=== PATIENT | male | born 1940 | race Caucasian/White ===

== ENCOUNTER 2018-03-03 16:36 | Inpatient (IN) ==
[2018-03-03] MEDS ORDERED: Morphine Inj 4 MG/ML Vial IV.PUSH ONE (17:00)
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
[2018-03-03] MEDS ORDERED: Morphine Sulfate Inj 2 MG/ML Vial IV.PUSH PRN (17:19)
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
[2018-03-03] MEDS: Sod Chloride 0.9% Inj 1,000 ML IV.CONT SCH ×2 (18:32→23:24)
[2018-03-03] MEDS: Pantoprazole Inj 40 MG Vial IV.PUSH SCH (18:33)
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
[2018-03-03] MEDS ORDERED: Morphine Inj 4 MG/ML Vial IV.PUSH PRN (20:19)
[2018-03-03 21:57] LABS: Hematocrit 31.2 % (39.0-51.0); Hemoglobin 10.1 gm/dL (13.0-17.0); Mean Corpuscular HGB Conc 32.4 % (32.0-36.0); Mean Corpuscular Hemoglobin 29.1 pg (27.0-34.0); Mean Corpuscular Volume 89.8 fL (80.0-100.0); Mean Platelet Volume 6.5 fL (7.0-11.0); Platelet Count 306 th/mm3 (150-450); Red Blood Count 3.48 mil/mm3 (4.50-5.90); White Blood Count 11.7 th/mm3 (4.0-11.0)
[2018-03-03 22:14] LABS: Calcium 7.5 mg/dL (8.5-10.1); Carbon Dioxide 22.8 meq/L (21.0-32.0); Potassium 4.1 meq/L (3.5-5.1)
[2018-03-03] MEDS: Ketorolac Inj 30 MG/ML (IVP) Vial IV.PUSH SCH (23:22)
[2018-03-03] MEDS: Docusate Sodium 100 MG Capsule PO SCH (23:24)
[2018-03-04] MEDS: Morphine Sulfate Inj 2 MG/ML Vial IV.PUSH PRN ×3 (02:23→09:25)
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
[2018-03-04] MEDS ORDERED: Chlorhexidine Gluconate 2% 1 Pack (2 Cloths) TOPICAL PRN (04:00)
[2018-03-04] MEDS: Sod Chloride 0.9% Inj 1,000 ML IV.CONT SCH ×2 (05:36→18:24)
[2018-03-04] MEDS: Ketorolac Inj 30 MG/ML (IVP) Vial IV.PUSH SCH ×4 (05:37→21:24)
[2018-03-04] MEDS: Chlorhexidine Gluconate 2% 1 Pack (2 Cloths) TOPICAL SCH (05:37)
[2018-03-04] MEDS ORDERED: Dextrose 50% in Water 50 ML Vial IV.PUSH PRN (06:27)
[2018-03-04] MEDS ORDERED: Methocarbamol 500 MG Tablet PO SCH (06:30)
[2018-03-04 08:23] LABS: Baso % (Auto) 0.5 % (0.0-2.0); Eos # (Auto) 0.5 th/mm3 (0.0-0.4); Eos % (Auto) 5.1 % (0.0-4.0); Hematocrit 29.6 % (39.0-51.0); Hemoglobin 9.7 gm/dL (13.0-17.0); Lymph # (Auto) 1.6 th/mm3 (1.0-4.8); Lymph % (Auto) 17.2 % (9.0-44.0); Mean Corpuscular HGB Conc 32.7 % (32.0-36.0); Mean Corpuscular Hemoglobin 29.5 pg (27.0-34.0); Mean Corpuscular Volume 90.2 fL (80.0-100.0); Mean Platelet Volume 6.6 fL (7.0-11.0); Mono # (Auto) 0.9 th/mm3 (0.0-0.9); Mono % (Auto) 9.5 % (0.0-8.0); Neut # (Auto) 6.5 th/mm3 (1.8-7.7); Neut % (Auto) 67.7 % (16.0-70.0); Platelet Count 280 th/mm3 (150-450); Red Blood Count 3.29 mil/mm3 (4.50-5.90); Red Cell Distribution Width 14.1 % (11.6-17.2); White Blood Count 9.6 th/mm3 (4.0-11.0)
[2018-03-04 08:33] LABS: Anion Gap 9 meq/L (5-15); Blood Urea Nitrogen 17 mg/dL (7-18); Calcium 7.7 mg/dL (8.5-10.1); Carbon Dioxide 24.3 meq/L (21.0-32.0); Chloride 102 meq/L (98-107); Glomerular Filtration Rate Greater Than 89 mL/min (>89); Glucose,Random 77 mg/dL (74-106); Potassium 4.4 meq/L (3.5-5.1); Sodium 135 meq/L (136-145)
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
[2018-03-04] MEDS: Insulin NovoLIN Regular Correctional Sugar Inj SQ SCH ×4 (09:19→22:46)
[2018-03-04] MEDS: Loratadine 10 MG Tablet PO SCH (09:22)
[2018-03-04] MEDS: Docusate Sodium 100 MG Capsule PO SCH ×2 (09:22→21:24)
[2018-03-04] MEDS: Polyethylene Glycol 3350 17 GM Packet PO SCH (09:23)
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
[2018-03-04] MEDS: Lisinopril 20 MG Tablet PO SCH (12:32)
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
[2018-03-04] MEDS ORDERED: Furosemide 40 MG Tablet PO SCH (16:15)
[2018-03-04] MEDS: Pantoprazole Inj 40 MG Vial IV.PUSH SCH (18:23)
--- NOTE | 2018-03-04 21:18 | US ---
EXAM DATE: 03/04/2018 9:14 PM EDT AGE/SEX: 77 years / Male INDICATIONS: Bilateral leg swelling. CLINICAL DATA: This is the patient's initial encounter. Patient reports that signs and symptoms have been present for 1 day and indicates a pain score of 0/10. MEDICAL/SURGICAL HISTORY: Chronic obstructive pulmonary disease. Gastroesophageal reflux disea se. Hypercholesterolemia. Anxiety. Arthritis. Diabetes. Hypertension. Prostate cancer. Appendectom y. Shoulder surgery. COMPARISON: No prior exams available for comparison. TECHNIQUE: Venous ultrasound of both lower extremities was performed from the inguinal ligament to t he proximal calf. Real-time, color Doppler and spectral tracing, compression and augmentation techni ques were used. FINDINGS: Right Leg: Normal compression of the deep venous system from the inguinal region to the proximal salma f. No echogenic clot is seen. Normal response of the venous system to augmentation and respiration. Left Leg: Normal compression of the deep venous system from the inguinal region to the proximal calf . No echogenic clot is seen. Normal response of the venous system to augmentation and respiration. Other: None. CONCLUSION: No DVT. Electronically signed by: Enoch Gee MD 03/04/2018 9:16 PM EDT
[2018-03-04] MEDS: traZODone 100 MG Tablet PO SCH (21:24)
--- NOTE | 2018-03-04 21:28 | ECG ---
Date Performed: 03/03/2018 Time Performed: 20:45:40 PTAGE: 77 years EKG: Sinus rhythm . Right bundle branch block Abnormal ECG NO PREVIOUS TRACING DOCTOR: Anthony Avalos Interpretating Date/Time 03/04/2018 21:27:23
[2018-03-04 21:37] LABS: Hematocrit 32.4 % (39.0-51.0); Hemoglobin 10.9 gm/dL (13.0-17.0); Mean Corpuscular HGB Conc 33.7 % (32.0-36.0); Mean Corpuscular Hemoglobin 29.6 pg (27.0-34.0); Mean Corpuscular Volume 87.7 fL (80.0-100.0); Mean Platelet Volume 6.9 fL (7.0-11.0); Platelet Count 298 th/mm3 (150-450); Red Blood Count 3.69 mil/mm3 (4.50-5.90); Red Cell Distribution Width 14.2 % (11.6-17.2); White Blood Count 9.8 th/mm3 (4.0-11.0)
[2018-03-04] MEDS ORDERED: Heparin Drip 25,000 UNIT/250 ML BAG IV.CONT PRN (21:40)
[2018-03-04] MEDS ORDERED: Heparin 10,000 UNITS/10 ML Vial (for IV use) IV.PUSH SCH (21:45)
[2018-03-04 21:57] LABS: INR 1.1 Ratio; Prothrombin Time 10.7 sec (9.8-11.6)
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
[2018-03-05] MEDS: Morphine Sulfate Inj 2 MG/ML Vial IV.PUSH PRN ×6 (01:12→22:37)
[2018-03-05] MEDS: Ketorolac Inj 30 MG/ML (IVP) Vial IV.PUSH SCH ×4 (03:05→21:24)
[2018-03-05] MEDS ORDERED: Heparin 10,000 UNITS/10 ML Vial (for IV use) IV.PUSH PRN ×2 (03:40)
[2018-03-05] MEDS: Chlorhexidine Gluconate 2% 1 Pack (2 Cloths) TOPICAL SCH (04:00)
--- NOTE | 2018-03-05 04:08 | XR ---
EXAM DATE: 03/05/2018 3:54 AM EDT AGE/SEX: 77 years / Male INDICATIONS: Shortness of breath CLINICAL DATA: This is the patient's subsequent encounter. Patient reports that signs and symptoms h ave been present for 2 days and indicates a pain score of 8/10. MEDICAL/SURGICAL HISTORY: . Chronic obstructive pulmonary disease. Gastroesophageal reflux dise ase. Hypercholesterolemia. Anxiety. Arthritis. Diabetes. Hypertension. Prostate cancer None. COMPARISON: [facility] [place], CTA PULMONARY W CONTRAST W 3D, 03/04/2018. . FINDINGS: Patchy parenchymal consolidation again seen of both lungs, fairly diffuse on the right and midlung/ba silar predominant on the left. No pleural effusion seen. No pneumothorax. Heart size stable, upper limits of normal. CONCLUSION: No significant change patchy parenchymal opacities of both lungs. Electronically signed by: Enoch Soler MD 03/05/2018 4:06 AM EDT
[2018-03-05] MEDS: Sod Chloride 0.9% Inj 1,000 ML IV.CONT SCH ×2 (05:39→17:30)
[2018-03-05 06:02] LABS: Baso # (Auto) 0.1 th/mm3 (0.0-0.2); Eos # (Auto) 0.6 th/mm3 (0.0-0.4); Eos % (Auto) 7.1 % (0.0-4.0); Hematocrit 31.8 % (39.0-51.0); Hemoglobin 10.3 gm/dL (13.0-17.0); Lymph # (Auto) 1.4 th/mm3 (1.0-4.8); Lymph % (Auto) 17.1 % (9.0-44.0); Mean Corpuscular HGB Conc 32.5 % (32.0-36.0); Mean Corpuscular Hemoglobin 29.5 pg (27.0-34.0); Mean Corpuscular Volume 90.7 fL (80.0-100.0); Mean Platelet Volume 6.7 fL (7.0-11.0); Mono # (Auto) 0.7 th/mm3 (0.0-0.9); Mono % (Auto) 8.7 % (0.0-8.0); Neut # (Auto) 5.6 th/mm3 (1.8-7.7); Neut % (Auto) 66.1 % (16.0-70.0); Platelet Count 266 th/mm3 (150-450); Red Blood Count 3.51 mil/mm3 (4.50-5.90); Red Cell Distribution Width 14.2 % (11.6-17.2); White Blood Count 8.5 th/mm3 (4.0-11.0)
[2018-03-05 06:32] LABS: Calcium 8.6 mg/dL (8.5-10.1); Carbon Dioxide 24.2 meq/L (21.0-32.0)
--- NOTE | 2018-03-05 06:51 | P.PNOP ---
Subjective Interval history: s/p left distal humerus fracture CTA yesterday of lungs reveal bilateral pulmonary emboli patient resting comfortably. no changes in elbow Physical Exam Vital signs: Vital Signs 03/04/18 07:12 03/04/18 08:00 03/04/18 08:18 Temperature 98.3 F Pulse Rate 96 H 99 H Respiratory Rate 24 19 17 Blood Pressure 170/81 H Pulse Oximetry 96 03/04/18 12:00 03/04/18 12:01 03/04/18 15:53 Temperature 98.4 F Pulse Rate 98 H 99 H 110 H Respiratory Rate 25 H 18 17 Blood Pressure 138/90 Pulse Oximetry 94 L 03/04/18 16:00 03/04/18 20:00 03/04/18 20:32 Temperature 98.4 F 97.7 F Pulse Rate 108 H 100 H 103 H Respiratory Rate 19 15 24 Blood Pressure 142/82 H 131/81 Pulse Oximetry 100 98 96 03/04/18 22:00 03/04/18 22:17 03/04/18 23:47 Temperature Pulse Rate 94 H Respiratory Rate 16 22 16 Blood Pressure Pulse Oximetry 03/05/18 00:00 03/05/18 04:00 Temperature 98.2 F 97.9 F Pulse Rate 98 H 59 L Respiratory Rate 13 17 Blood Pressure 108/63 105/59 L Pulse Oximetry 99 98 Intake & Output 03/04/18 03/04/18 03/05/18 06:59 18:59 06:59 Intake Total 1080 / 1080 Output Total 550 / 550 1700 / 1700 Balance 530 / 530 -1700 / -1700 Weight 84.6 kg 84.598 kg Intake: IV 1000 / 1000 NS Inj 1,000 ML @ 100 mls/hr IV 1000 / 1000 .CONT .Q10H [facility] Rx#:[id number] Oral 80 / 80 Output: Urine 550 / 550 1700 / 1700 Stool 0 / 0 0 / 0 Other: Weight On Admission 84.3 kg Narrative: LUE: +long arm splint. intact. NVI Results - Labs CBC & Chem 7: 03/05/18 05:26 03/05/18 05:26 Laboratory Results - last 24 hr 03/04/18 03/04/18 03/04/18 07:40 07:40 08:02 WBC 9.6 RBC 3.29 L Hgb 9.7 L Hct 29.6 L MCV 90.2 MCH 29.5 MCHC 32.7 RDW 14.1 Plt Count 280 MPV 6.6 L Prelim Diff (Auto) Slide review pending Neut % (Auto) 67.7 Lymph % (Auto) 17.2 [place] % (Auto) 9.5 H Eos % (Auto) 5.1 H Baso % (Auto) 0.5 Neut # (Auto) 6.5 Lymph # (Auto) 1.6 [place] # (Auto) 0.9 Eos # (Auto) 0.5 H Baso # (Auto) 0.0 WBC Differential . Diff Scan Auto diff confirmed Differential Comment . PT INR APTT Sodium 135 L Potassium 4.4 Chloride 102 Carbon Dioxide 24.3 Anion Gap 9 BUN 17 Creatinine 0.73 Estimated GFR Greater than 89 POC Glucose 91 Random Glucose 77 Calcium 7.7 L Nasal Screen MRSA (PCR) Blood Type Blood Type Recheck Antibody Screen 03/04/18 03/04/18 03/04/18 12:46 18:39 20:30 WBC RBC Hgb Hct MCV MCH MCHC RDW Plt Count MPV Prelim Diff (Auto) Neut % (Auto) Lymph % (Auto) [place] % (Auto) Eos % (Auto) Baso % (Auto) Neut # (Auto) Lymph # (Auto) [place] # (Auto) Eos # (Auto) Baso # (Auto) WBC Differential Diff Scan Differential Comment PT INR APTT Sodium Potassium Chloride Carbon Dioxide Anion Gap BUN Creatinine Estimated GFR POC Glucose 99 119 H Random Glucose Calcium Nasal Screen MRSA (PCR) Not detected Blood Type Blood Type Recheck Antibody Screen 03/04/18 03/04/18 03/04/18 21:00 21:00 21:00 WBC 9.8 RBC 3.69 L Hgb 10.9 L Hct 32.4 L MCV 87.7 MCH 29.6 MCHC 33.7 RDW 14.2 Plt Count 298 MPV 6.9 L Prelim Diff (Auto) Neut % (Auto) Lymph % (Auto) [place] % (Auto) Eos % (Auto) Baso % (Auto) Neut # (Auto) Lymph # (Auto) [place] # (Auto) Eos # (Auto) Baso # (Auto) WBC Differential Diff Scan Differential Comment PT 10.7 INR 1.1 APTT 23.0 L Sodium Potassium Chloride Carbon Dioxide Anion Gap BUN Creatinine Estimated GFR POC Glucose Random Glucose Calcium Nasal Screen MRSA (PCR) Blood Type Blood Type Recheck Antibody Screen 03/04/18 03/05/18 03/05/18 22:25 05:25 05:25 WBC RBC Hgb Hct MCV MCH MCHC RDW Plt Count MPV Prelim Diff (Auto) Neut % (Auto) Lymph % (Auto) [place] % (Auto) Eos % (Auto) Baso % (Auto) Neut # (Auto) Lymph # (Auto) [place] # (Auto) Eos # (Auto) Baso # (Auto) WBC Differential Diff Scan Differential Comment PT INR APTT 44.5 H D Sodium Potassium Chloride Carbon Dioxide Anion Gap BUN Creatinine Estimated GFR POC Glucose 160 H Random Glucose Calcium Nasal Screen MRSA (PCR) Blood Type Cancelled Blood Type Recheck Cancelled Antibody Screen Cancelled 03/05/18 03/05/18 05:26 05:26 WBC 8.5 RBC 3.51 L Hgb 10.3 L Hct 31.8 L MCV 90.7 MCH 29.5 MCHC 32.5 RDW 14.2 Plt Count 266 MPV 6.7 L Prelim Diff (Auto) Neut % (Auto) 66.1 Lymph % (Auto) 17.1 [place] % (Auto) 8.7 H Eos % (Auto) 7.1 H Baso % (Auto) 1.0 Neut # (Auto) 5.6 Lymph # (Auto) 1.4 [place] # (Auto) 0.7 Eos # (Auto) 0.6 H Baso # (Auto) 0.1 WBC Differential . Diff Scan Differential Comment Auto diff final PT INR APTT Sodium 136 Potassium 4.0 Chloride 102 Carbon Dioxide 24.2 Anion Gap 10 BUN 13 Creatinine 1.07 Estimated GFR 67 L POC Glucose Random Glucose 131 H Calcium 8.6 D Nasal Screen MRSA (PCR) Blood Type Blood Type Recheck Antibody Screen - Imaging Impressions Abdomen/Pelvis CT 03/04/18 00:00 CONCLUSION: 1. No acute findings. Chest CTA 03/04/18 00:00 CONCLUSION: 1. Bilateral pulmonary emboli are noted. Elbow CT 03/04/18 00:00 CONCLUSION: 1. Impacted, mildly displaced and comminuted fracture of the distal humerus identified. 2. Surrounding subcutaneous edema is noted. Face CT 03/04/18 00:00 CONCLUSION: 1. Right periorbital soft tissue swelling without obvious fracture Venous Doppler Study 03/04/18 00:00 CONCLUSION: No DVT. Head CT 03/04/18 21:13 CONCLUSION: 1. No acute intracranial abnormality. 2. Deformity at the nasal bone. The age of this deformity is not known. 3. Periorbital soft tissue swelling. . Chest X-Ray 03/05/18 00:00 CONCLUSION: No significant change patchy parenchymal opacities of both lungs. Assessment and Plan - Problem List (1) Multiple rib fractures Code(s): S22.49XA - Multiple fractures of ribs, unspecified side, initial encounter for closed fracture Status: Acute Qualifiers: Encounter type: initial encounter Fracture type: closed Laterality: left Qualified Code(s): S22.42XA - Multiple fractures of ribs, left side, initial encounter for closed fracture (2) Elbow fracture, left Code(s): S42.402A - Unspecified fracture of lower end of left humerus, initial encounter for closed fracture Status: Acute Qualifiers: Encounter type: initial encounter Fracture type: closed Qualified Code(s) : S42.402A - Unspecified fracture of lower end of left humerus, initial encounter for closed fracture - Assessment and Plan 1) Left Distal Humerus Fx 2) Bilateral Pulmonary Emboli -CT scan of the elbow was completed yesterday. It showed that the fracture is indeed extra-articular. Overall, the fracture is relatively well aligned. Given that the patient has bilateral pulmonary emboli, it is not safe to proceed with surgical intervention. Given his age and activity level, should do relatively well with conservative treatment. He is too high risk to proceed with surgical intervention at this time. Therefore, we will plan on definitive nonoperative treatment for his left elbow. He is to remain strictly nonweightbearing on the left arm and maintain his splint at all times. He may follow-up in an outpatient basis with Dr. Howard in 2 weeks. Medical treatment. He may resume his diet today.
[2018-03-05] MEDS: Lisinopril 20 MG Tablet PO SCH (08:07)
[2018-03-05] MEDS: Loratadine 10 MG Tablet PO SCH (08:07)
[2018-03-05] MEDS: Docusate Sodium 100 MG Capsule PO SCH ×2 (08:07→21:24)
[2018-03-05] MEDS: Polyethylene Glycol 3350 17 GM Packet PO SCH (08:08)
[2018-03-05] MEDS: Insulin NovoLIN Regular Correctional Sugar Inj SQ SCH ×4 (10:16→21:22)
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
[2018-03-05] MEDS: Furosemide 40 MG Tablet PO SCH (14:48)
--- NOTE | 2018-03-05 17:08 | ECHRPT ---
Indication: CONCLUSIONS Normal left ventricular size. Wall thickness is normal. The left ventricular systolic function is mildly reduced with an estimated ejection fraction in the range of 45- 50%. Mitral annular calcification is present. Aortic valve sclerosis is present. There is trace- mild tricuspid valve regurgitation. The estimated pulmonary arterial pressure is 45 mmHg. BP: / HR: Rhythm: MEASUREMENTS (Male / Female) Normal Values Technical Quality:Technically difficult study 2D ECHO LV Diastolic Diameter PLAX 4.6 cm 4.2 - 5.9 / 3.9 - 5.3 cm LV Systolic Diameter PLAX 3.5 cm IVS Diastolic Thickness 1.0 cm 0.6 - 1.0 / 0.6 - 0.9 cm LVPW Diastolic Thickness 0.7 cm 0.6 - 1.0 / 0.6 - 0.9 cm LV Relative Wall Thickness 0.4 RV Internal Dim ED PLAX 2.3 cm DOPPLER AV Peak Velocity 184.0 cm/s AV Peak Gradient 13.5 mmHg LVOT Peak Velocity 87.4 cm/s LVOT Peak Gradient 3.1 mmHg Mitral E Point Velocity 54.8 cm/s Mitral A Point Velocity 67.1 cm/s Mitral E to A Ratio 0.8 TR Peak Velocity 296.0 cm/s TR Peak Gradient 35.0 mmHg Right Atrial Pressure 10.0 mmHg Pulmonary Artery Systolic Pressu 45.0 mmHg Right Ventricular Systolic Press 45.0 mmHg FINDINGS LEFT VENTRICLE Normal left ventricular size. Wall thickness is normal. The left ventricular systolic function is mildly reduced with an estimated ejection fraction in the range of 45- 50%. RIGHT VENTRICLE Normal right ventricular size and systolic function. LEFT ATRIUM The left atrial size is normal. RIGHT ATRIUM The right atrial size is normal. ATRIAL SEPTUM Normal atrial septal thickness without atrial level shunting by limited color doppler interrogation. AORTA The aortic root and proximal ascending aorta are normal in size on limited imaging. MITRAL VALVE Mitral annular calcification is present. AORTIC VALVE Aortic valve sclerosis is present. TRICUSPID VALVE There is trace- mild tricuspid valve regurgitation. The estimated pulmonary arterial pressure is 45 mmHg. PULMONARY VALVE No pulmonary valve regurgitation or stenosis. VESSELS The inferior vena cava is normal in size. PERICARDIUM No pericardial effusion. Rojelio Berg MD, FACC Edited by: health administrator health administrator (Electronically Signed) Final Date:05 March 2018 11:54 Amended: 05 March 2018 17:07
[2018-03-05] MEDS: Pantoprazole Inj 40 MG Vial IV.PUSH SCH (17:55)
[2018-03-05] MEDS: traZODone 100 MG Tablet PO SCH (21:25)
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
[2018-03-06] MEDS: Ketorolac Inj 30 MG/ML (IVP) Vial IV.PUSH SCH ×4 (03:08→20:15)
[2018-03-06] MEDS: Chlorhexidine Gluconate 2% 1 Pack (2 Cloths) TOPICAL SCH (04:40)
[2018-03-06] MEDS: Morphine Sulfate Inj 2 MG/ML Vial IV.PUSH PRN ×2 (05:14→12:41)
[2018-03-06 05:36] LABS: Calcium 8.2 mg/dL (8.5-10.1); Carbon Dioxide 21.9 meq/L (21.0-32.0)
--- NOTE | 2018-03-06 06:40 | P.PNOP ---
Subjective Interval history: s/p left distal humerus fx. doing well. no changes. no new complaints Physical Exam Vital signs: Vital Signs 03/05/18 08:00 03/05/18 08:33 03/05/18 08:38 Temperature 98.0 F Pulse Rate 87 76 Respiratory Rate 11 L 14 Blood Pressure 117/62 Pulse Oximetry 97 96 03/05/18 11:57 03/05/18 12:00 03/05/18 15:46 Temperature 98.2 F Pulse Rate 94 H 101 H 100 H Respiratory Rate 18 28 H 20 Blood Pressure 110/72 Pulse Oximetry 100 03/05/18 16:00 03/05/18 17:21 03/05/18 20:00 Temperature 98.1 F 97.7 F 98.1 F Pulse Rate 110 H 101 H 103 H Respiratory Rate 16 20 19 Blood Pressure 92/55 L 107/58 L 120/90 Pulse Oximetry 97 97 96 03/05/18 21:12 03/05/18 23:00 03/06/18 00:00 Temperature 98.0 F Pulse Rate 84 81 99 H Respiratory Rate 14 19 18 Blood Pressure 111/57 L Pulse Oximetry 95 94 L 03/06/18 03:00 03/06/18 04:00 Temperature 97.7 F Pulse Rate 91 H 97 H Respiratory Rate 16 19 Blood Pressure 117/83 Pulse Oximetry 93 L Intake & Output 03/05/18 03/05/18 03/06/18 06:59 18:59 06:59 Intake Total 240 / 240 340 / 340 Output Total 750 / 750 1175 / 1175 Balance -510 / -510 340 / 340 -1175 / -1175 Weight 87.3 kg 8702 kg Intake: IV 100 / 100 Heparin/D5W 25,000 U/250 mL 25, 100 / 100 000 unit In 250 ml @ Per Protocol 15 mls/hr IV.CONT TITRATE PRN Rx#:[id number] Oral 240 / 240 240 / 240 Output: Urine 750 / 750 1175 / 1175 Other: Date of Last Bowel Movement 03/03/18 Narrative: LUE: +long arm splint. intact. NVI Results - Labs CBC & Chem 7: 03/05/18 05:26 03/06/18 04:23 Laboratory Results - last 24 hr 03/05/18 03/06/18 07:44 04:23 Sodium 138 Potassium 4.0 Chloride 106 Carbon Dioxide 21.9 Anion Gap 10 BUN 16 Creatinine 0.98 Estimated GFR 74 L POC Glucose 127 H Random Glucose 108 H Calcium 8.2 L Assessment and Plan - Problem List (1) Multiple rib fractures Code(s): S22.49XA - Multiple fractures of ribs, unspecified side, initial encounter for closed fracture Status: Acute Qualifiers: Encounter type: initial encounter Fracture type: closed Laterality: left Qualified Code(s): S22.42XA - Multiple fractures of ribs, left side, initial encounter for closed fracture (2) Elbow fracture, left Code(s): S42.402A - Unspecified fracture of lower end of left humerus, initial encounter for closed fracture Status: Acute Qualifiers: Encounter type: initial encounter Fracture type: closed Qualified Code(s) : S42.402A - Unspecified fracture of lower end of left humerus, initial encounter for closed fracture - Assessment and Plan 1) Left Distal Humerus Fx 2) Bilateral Pulmonary Emboli -CT scan of the elbow was completed yesterday. It showed that the fracture is indeed extra-articular. Overall, the fracture is relatively well aligned. Given that the patient has bilateral pulmonary emboli, it is not safe to proceed with surgical intervention. Given his age and activity level, should do relatively well with conservative treatment. He is too high risk to proceed with surgical intervention at this time. Therefore, we will plan on definitive nonoperative treatment for his left elbow. He is to remain strictly nonweightbearing on the left arm and maintain his splint at all times. He may follow-up in an outpatient basis with Dr. Howard in 2 weeks. Medical treatment. He may resume his diet today. -will have orthotech reinforce splint -ortho cleared for discharge when arrangements made
[2018-03-06 07:19] LABS: Baso # (Auto) 0.1 th/mm3 (0.0-0.2); Eos # (Auto) 0.5 th/mm3 (0.0-0.4); Eos % (Auto) 5.1 % (0.0-4.0); Hematocrit 28.8 % (39.0-51.0); Hemoglobin 9.6 gm/dL (13.0-17.0); Lymph # (Auto) 1.5 th/mm3 (1.0-4.8); Lymph % (Auto) 16.4 % (9.0-44.0); Mean Corpuscular HGB Conc 33.2 % (32.0-36.0); Mean Corpuscular Hemoglobin 30.3 pg (27.0-34.0); Mean Platelet Volume 7.1 fL (7.0-11.0); Mono # (Auto) 0.7 th/mm3 (0.0-0.9); Mono % (Auto) 7.4 % (0.0-8.0); Neut # (Auto) 6.2 th/mm3 (1.8-7.7); Neut % (Auto) 70.1 % (16.0-70.0); Platelet Count 237 th/mm3 (150-450); Red Blood Count 3.16 mil/mm3 (4.50-5.90); Red Cell Distribution Width 14.1 % (11.6-17.2); White Blood Count 8.9 th/mm3 (4.0-11.0)
[2018-03-06] MEDS: Polyethylene Glycol 3350 17 GM Packet PO SCH (09:56)
[2018-03-06] MEDS: Docusate Sodium 100 MG Capsule PO SCH ×2 (10:00→20:14)
[2018-03-06] MEDS: Loratadine 10 MG Tablet PO SCH (10:00)
[2018-03-06] MEDS: Lisinopril 20 MG Tablet PO SCH (10:01)
[2018-03-06] MEDS: Insulin NovoLIN Regular Correctional Sugar Inj SQ SCH ×4 (10:01→22:09)
[2018-03-06] MEDS: Furosemide 40 MG Tablet PO SCH (10:02)
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
[2018-03-06] MEDS: Pantoprazole Inj 40 MG Vial IV.PUSH SCH (17:01)
[2018-03-06] MEDS: traZODone 100 MG Tablet PO SCH (20:14)
[2018-03-07] MEDS: Ketorolac Inj 30 MG/ML (IVP) Vial IV.PUSH SCH ×2 (03:28→08:59)
--- NOTE | 2018-03-07 04:43 | XR ---
EXAM DATE: 03/07/2018 4:02 AM EDT AGE/SEX: 77 years / Male INDICATIONS: Pulmonary contusion. CLINICAL DATA: This is the patient's subsequent encounter. Patient reports that signs and symptoms h ave been present for 2 days and indicates a pain score of 9/10. MEDICAL/SURGICAL HISTORY: . Chronic obstructive pulmonary disease. Gastroesophageal reflux dise ase. Hypercholesterolemia. Anxiety. Arthritis. Diabetes. Hypertension. Prostate cancer. . Right shou lder. COMPARISON: [facility] [place], CHEST 1V SINGLE AP, 03/05/2018. . FINDINGS: A single AP view of the chest demonstrates some improvement within the parenchymal consolidation with in the left base relative to the prior study. Chronic interstitial changes are noted throughout both lungs. No effusions. Heart is normal in size. Right humeral head prosthesis. CONCLUSION: Improving consolidation of the left base. Diffuse chronic interstitial changes. Electronically signed by: Idris Rodriguez MD 03/07/2018 4:41 AM EDT
[2018-03-07] MEDS: Chlorhexidine Gluconate 2% 1 Pack (2 Cloths) TOPICAL SCH (05:53)
[2018-03-07] MEDS: Morphine Sulfate Inj 2 MG/ML Vial IV.PUSH PRN (05:58)
[2018-03-07] MEDS: Docusate Sodium 100 MG Capsule PO SCH (08:56)
[2018-03-07] MEDS: Insulin NovoLIN Regular Correctional Sugar Inj SQ SCH ×2 (08:56→12:27)
[2018-03-07] MEDS: Lisinopril 20 MG Tablet PO SCH (08:56)
[2018-03-07] MEDS: Loratadine 10 MG Tablet PO SCH (08:58)
[2018-03-07] MEDS: Polyethylene Glycol 3350 17 GM Packet PO SCH (08:58)
[2018-03-07] MEDS: Furosemide 40 MG Tablet PO SCH (08:58)
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
[2018-03-07] MEDS ORDERED: Furosemide 40 MG Tablet PO PRN (12:45)
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
== END 2018-03-07 14:30 ==
LOC: NEPC 16:36 → NEDA 17:03 → N03 19:56 → N06 03-05 16:37
PROVIDERS: ADMIT Surgery; ATTEND Surgery